=== PATIENT | female | born 1945 | race Caucasian/White ===

== ENCOUNTER → 2017-06-21 | Day surgery (SDC) | payer MEDICARE ==
[~2017-06-21] MED LIST: BUPIVACAINE/EPINEPHRINE 0.25% 50 ML VIAL ONE; BUPIVACAINE/EPINEPHRINE 0.5% 50 ML VIAL ONE; ESTR0.07 TD; HUMI40KI PO; ISOSULFAN BLUE 50 MG/5 ML VIAL SQ ONE; LACTATED RINGER'S 1000 ML INJ 1,000 ML ONE; MIDAZOLAM HCL 2 MG/2 ML VIAL ONE; MOTR200T PO; ONDANSETRON HCL 4 MG/2 ML VIAL IV PUSH ONE; PROPOFOL 200 MG/20 ML AMP IV ONE; SODIUM CHLORIDE 0.9% 250 ML ADDBAG IV ONE; VANCOMYCIN HCL 1000 MG VIAL ONE; [UNRECOGNIZED DRUG - CODE] IV
--- NOTE | 2017-06-21 17:51 | TN ---
cc: BILLIEABDOULAYE DATE OF SURGERY 06/21/17 PREOPERATIVE DIAGNOSIS 1. Left breast cancer. 2. History of lymphoma. POSTOPERATIVE DIAGNOSIS 1. Left breast cancer. 2. History of lymphoma. PROCEDURE PERFORMED 1. Left breast needle localized lumpectomy. 2. Intraoperative radiation therapy. 3. Injection and excision sentinel lymph node, left axilla x3. SURGEON Gregory Hopper MD ANESTHESIA General LMA COMPLICATIONS None. INDICATIONS FOR PROCEDURE Ms. Kaur is a pleasant 71-year-old patient of Dr. Matt Simpson. She was diagnosed with lymphoma and was undergoing workup for that. During the workup for the lymphoma, they noticed a breast mass. 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 The patient was referred for surgical evaluation. The patient underwent genetic testing due to a strong family history of breast cancer. Once the genetic testing was completed, she was seen back in the office and offered lumpectomy versus mastectomy. The patient elected lumpectomy and was also a good candidate for IORT. She was seen by Dr. Shell and he was agreeable to perform IORT on her. Risks and benefits of lumpectomy with a IORT and sentinel lymph node injection excision was discussed with her in the office and she was agreeable. INTRAOPERATIVE FINDINGS The patient was found to have three sentinel nodes. The first sentinel node was blue and had a count of 864. The second sentinel node was also blue and had a count of 328. The third sentinel node was also blue and had a count of 907. PROCEDURE IN DETAIL The patient was identified, brought to the operating room and placed supine on the operating table. After adequate general anesthesia was achieved, the anterior left chest and axilla was prepped and draped in a standard surgical fashion. Five mL of isosulfan blue was injected into the periareolar position as well as along the wire localization which occurred in the upper outer quadrant of the left breast where the patient had the lesion noted at 2 o'clock position. This was then massaged into the breast. 0.25% Marcaine was injected at the axilla. The probe was used to locate the approximate site of the sentinel nodes. Transverse incision was then made. Dissection proceeded down into the subcutaneous tissue into the axilla proper. Immediately, we encountered an enlarged blue node. This node was grasped in Allis clamp and dissected from surrounding tissue. It was excised and found to have a 10-second count of 864. Next, there was a node that was inferior to this and this node was grasped and excised and found to have some blue channels going to it and it had a count of 328. Then the third node was identified, was much more superior and medial higher up on the lymph node chain under the pec muscle. Dissection proceeded up following the blue channels up to the node which was also localized with the probe. It was grasped with an Allis clamp and dissected from surrounding tissue and excised. This was labeled sentinel node #3 and was found have a count of 907 ex vivo. Once we did this, there was no significant activity noted within the axilla. By direct palpation, I could not palpate any abnormal adenopathy. By direct visualization, I could see no other blue channels or blue nodes. There was some additional tissue where the first two nodes was sitting that did have some blue dye in it. I went ahead and excised this area and this was labeled additional axillary tissue as it was adjacent to where the sentinel node one and sentinel node two were localized. Wound was copiously irrigated with normal saline solution. The wound was then injected with additional local anesthetic 10 mL and then it was closed in two layers using a 3-0 and 4-0 Vicryl. Sterile dressings were applied. Attention was now directed to the left breast. In the left breast, the patient had a wire localization coming from posterior to anterior in the upper outer quadrant of the left breast. Site was selected midway between the nipple and the axilla anterior axillary line as the lesion was about 6-8 cm from the nipple high up in the axillary tail portion of the breast. 0.25% Marcaine was injected. A semilunar incision was made. Dissection was carried down through the subcutaneous tissue into the breast tissue proper. Next, using generous margins all breast tissue was excised down to the level of the base of the wire. Care was taken to stay several centimeters away from the wire in all directions. Wire was then transected and the specimen brought up and out. Specimen was palpated and the wire was found be in the central portion. Tip was noted to be within the specimen. A short stitch was placed superior, long stitch was placed medial and the wire demarcated the lateral margin. Specimen was sent to radiology, Dr. Amanda ____, confirmed the mass to be present within the specimen with generous margins by ultrasound. Wound was then copiously irrigated with normal saline solution. Cavity was incised. Cavity had about a 4 cm defect. Therefore, we used the 4 cm catheter on the IORT. This was sized into the cavity and was felt to be appropriate. A #1 Prolene suture was used to make a pursestring at the top of the wound. The IORT machine was then brought up onto the field and then draped in a sterile fashion. The IORT probe was then inserted and the pursestring suture sutured down. We then checked all four margins with the ultrasound. The closest margin was the lateral which was 95 mm. All other margins were greater than 1 centimeter. We then performed approximately 25 minutes of IORT. Please see Dr. Prakash Shell's note for the details of this procedure. Once this was completed, we returned to the room. The pursestring suture was removed. The IORT machine and probe were then removed. Wound was copiously irrigated with normal saline solution. There were no bleeding points noted. Ten mL of 0.25% Marcaine was injected into the breast. A 3-0 and 4-0 Vicryl was then used to close the breast. Sterile dressings were applied. The patient was awakened, brought to recovery in stable condition. MD HANY Boyce/ /3:54 PM /5:23 PM
--- NOTE | 2017-06-22 07:43 | RADONCOP ---
OPERATIVE REPORT Date: 06/21/2017 Patient Name: Ayanna Kaur OPERATIVE REPORT DATE OF SURGERY: 06/22/2017 REFERRING PHYSICIAN: Wade Hopper PREOPERATIVE DIAGNOSIS: C50.412 - Malignant neoplasm of upper-outer quadrant of left female breast, Diagnosed 04/18/2017 (Active) C85.90 - Non-Hodgkin lymphoma, unspecified, unspecified site, Diagnosed 04/18/2017 (Active) POSTOPERATIVE DIAGNOSIS: C50.412 - Malignant neoplasm of upper-outer quadrant of left female breast, Diagnosed 04/18/2017 (Active) C85.90 - Non-Hodgkin lymphoma, unspecified, unspecified site, Diagnosed 04/18/2017 (Active) PROCEDURE: Intraoperative Radiation Therapy to the . SURGEON: Wade Hopper ANESTHESIA: General ESTIMATED BLOOD LOSS: Minimal INDICATIONS: Patient is a 71 year old female presenting with left breast cancer. She has elected to receive targeted intraoperative radiation therapy to the . DESCRIPTION OF PROCEDURE: Patient was taken to the operating room and placed on the table in the supine position. Following induction of general anesthesia, the and arm were prepped and draped sterilely. Ultrasound was performed of the breast to document the location of the breast malignancy. The wound was prepared for intraoperative radiation therapy. Based on the diameter of the cavity, a 4 cm radiation applicator was selected for the delivery of intraoperative radiation therapy. The applicator was then sterilely mounted onto the Intrabeam Stand. The 4 cm Radiation applicator was then sterilely inserted into the wound. The superficial purse-string suture was tied down. Ultrasound was performed of the breast to document conformity of the surgical margins and the distance from the applicator to the skin surface (>1 cm). The retracting sutures were then secured and a moistened lap pad was placed on the skin surface, followed by an external radiation barrier. Intraoperative radiotherapy was then initiated by the Radiation Oncologist. Total treatment time was 25 minutes. Upon completion of the intraoperative radiotherapy treatment, the radiation applicator, purse-string sutures and retracting sutures were removed from the wound. The patient was then turned back over to the surgeon, Wade Hopper in stable condition for completion of surgical procedure. Tex Shell MD 06/22/2017 7:42:49 AM This report was verified and signed electronically
--- NOTE | 2017-06-22 07:44 | RADONCENDT ---
END OF TREATMENT SUMMARY Date: 06/22/2017 Patient Name: Ayanna Kaur Date of : 1945 Age: 71 Sex: Female END OF TREATMENT SUMMARY PRIMARY REFERRING PHYSICIAN: Wade Hopper CC: Wade Hopper DIAGNOSIS: Primary C50.412 - Malignant neoplasm of upper-outer quadrant of left female breast, Diagnosed 04/18/2017 (Active) Primary C85.90 - Non-Hodgkin lymphoma, unspecified, unspecified site, Diagnosed 04/18/2017 (Active) PRESCRIPTION AND TREATMENT: 2000 cGy to surface of applicator- TREATED PLAN FRACTIONS AND DATES: Course: One fraction delivered on 06/21/2017 TOLERANCE: Patient completed treatment without complications. FOLLOW UP PLAN: Patient to be seen in in clinic in approx.. 3-4 weeks. Tex Shell MD 06/22/2017 7:44:09 AM This report was verified and signed electronically
== END | disposition home or self-care (01) ==
LOC: ESDC 08:58
PROVIDERS: ATTEND Surgery Trauma Surgery
DX: C50.412 Malignant neoplasm of upper-outer quadrant of left female breast (principal); C85.90 Non-Hodgkin lymphoma, unspecified, unspecified site
CPT/HCPCS: 00400; 01610; 19294; 19301; 38525; 38792; 77290; 77300; 77334; 77370; 77424; 88307; J2250; J2405; J3010; J3370; J7120; Q9968; 77469